=== PATIENT | female | born 2000 | race Caucasian/White ===

== ENCOUNTER 2025-06-19 01:14 | Emergency (ER) | payer OTHER ==
[~2025-06-19] VITALS: Ht 162.6 cm; Wt 55.0 kg
[2025-06-19 01:15] VITALS: O2SAT 100
[2025-06-19] MEDS: SODIUM CHLORIDE 0.9% 1,000 ML IV ONE (02:06)
[2025-06-19 02:33] LABS: CLARITY URINE CLEAR (CLEAR); COLOR URINE YELLOW (YELLOW); GLUCOSE URINE NEGATIVE (NEGATIVE); KETONES URINE NEGATIVE (NEGATIVE); LEUKOCYTE ESTERASE URINE 1+ (NEGATIVE); NITRITE URINE NEGATIVE (NEGATIVE); OCCULT BLOOD URINE NEGATIVE (NEGATIVE); PH URINE 6.5 (4.5-8.0); PROTEIN URINE NEGATIVE (NEGATIVE); SPECIFIC GRAVITY URINE 1.009 (1.005-1.030); UROBILINOGEN URINE 0.2 E.U./dL (0.2-1.0)
[2025-06-19 02:41] LABS: CREATININE 0.6 mg/dL (0.6-1.0); ETHANOL BLOOD < 10 mg/dL (<10); UREA NITROGEN BLOOD 11 mg/dL (9-23)
[2025-06-19 02:42] LABS: PROTEIN TOTAL 7.0 g/dL (6.0-8.3)
[2025-06-19 02:43] LABS: ASPARTATE AMINOTRANSFERASE 19 IU/L (<34); BILIRUBIN DIRECT < 0.1 mg/dL (<=3.0); BILIRUBIN TOTAL 0.4 mg/dL (0.1-1.0)
[2025-06-19 02:57] LABS: HCG SCREEN NEGATIVE
[2025-06-19] MEDS: ONDANSETRON HCL 4MG/2ML INJ IV ONE (03:29)
[2025-06-19] MEDS: ACETAMINOPHEN 325MG TABLET PO ONE (03:47)
[2025-06-19 03:56] LABS: BASOPHILS % 0.4 % (0.0-2.0); EOSINOPHILS % 0.9 % (0.0-5.0); HEMATOCRIT. 41.1 % (36.0-48.0); HEMOGLOBIN. 13.8 g/dL (12.0-16.0); LYMPHOCYTES % 30.0 % (20.0-50.0); MEAN PLATELET VOLUME 8.1 fl (7.4-10.4); MONOCYTES % 8.0 % (2.0-8.0); NEUTROPHILS % 60.7 % (40.0-76.0); PLATELET 286 x1000/uL (130-400); RED BLOOD CELL COUNT 4.39 mill/uL (4.2-5.4); RED CELL DISTRIBUTION WIDTH 13.3 % (11.6-14.6)
[2025-06-19] MEDS: ONDANSETRON HCL 4MG/2ML INJ IV NR (04:09)
[2025-06-19 04:13] LABS: *AMPHETAMINES SCREEN URINE NEGATIVE (NEGATIVE); *BARBITURATES SCREEN URINE NEGATIVE (NEGATIVE); *BENZODIAZEPINES SCREEN URINE NEGATIVE (NEGATIVE)
[2025-06-19] MEDS ORDERED: ONDA4TAB50 MT (04:13)
[2025-06-19 04:14] LABS: *COCAINE SCREEN URINE NEGATIVE (NEGATIVE); CANNABINOID URINE SCREEN NEGATIVE (NEGATIVE); ECSTASY MDMA SCREEN URINE NEGATIVE (NEGATIVE); METHADONE URINE SCREEN NEGATIVE (NEGATIVE); OPIATES URINE SCREEN NEGATIVE (NEGATIVE); PHENCYCLIDINE URINE SCREEN NEGATIVE (NEGATIVE)
[2025-06-19 04:15] VITALS: BP 126/72; PULSE 89; RESP 16; TEMP 37.1; O2SAT 100
[2025-06-19 05:06] LABS: RBC URINE NONE SEEN /hpf (0-2)
[2025-06-19 05:07] LABS: BACTERIA URINE TRACE; SQUAMOUS EPITHELIAL CELL URINE FEW /lpf (RARE/1+)
== END 2025-06-19 04:30 | disposition home or self-care (01) ==
LOC: ER 01:14
DX: K58.9 Irritable bowel syndrome, unspecified (principal); E86.0 Dehydration; Z79.899 Other long term (current) drug therapy
CPT/HCPCS: 80076; 80305; 80048; 81003; 80320; 84703; 83690; 85025; 36415; 96374; 99283; J2405; J7030; G0480